=== PATIENT | female | born 1975 | race African-American/Black ===

== ENCOUNTER 2016-11-30 14:55 | Inpatient (IN) | payer OTHER ==
[2016-11-30 16:21] LABS: Anion Gap 16 mmol/L; Blood Urea Nitrogen 12 mg/dL (7-17); Calcium 8.9 mg/dL (8.4-10.2); Carbon Dioxide 24 mmol/L (22-30); Chloride 98.7 mmol/L (98-107); Glucose 107 mg/dL (65-100); Potassium 4.7 mmol/L (3.6-5.0); Sodium 134 mmol/L (137-145)
[2016-11-30 16:32] LABS: Basophils % (Auto) 0.6 % (0.0-1.8); Eosinophils % (Auto) 7.1 % (0.0-4.3); Hemoglobin 11.9 gm/dl (10.1-14.3); Mean Corpuscular HGB Conc 33 % (30-34); Mean Corpuscular Hemoglobin 30 pg (28-32); Mean Corpuscular Volume 91 fl (79-97); Platelet Count 233 K/mm3 (140-440); Red Blood Count 3.97 M/mm3 (3.65-5.03); Red Cell Distribution Width 13.8 % (13.2-15.2); White Blood Count 6.3 K/mm3 (4.5-11.0)
--- NOTE | 2016-11-30 21:20 | Emergency Department Report ---
ED Chest Pain HPI - General Chief Complaint: Chest Pain Stated Complaint: CHEST PAIN Time Seen by Provider: 11/30/16 21:05 Source: patient Mode of arrival: Ambulatory Limitations: No Limitations - History of Present Illness Initial Comments: 41 yo female with a past medical history of hyper-cholesteremia with CAD 2 stents presents to the hospital complains of chest pain today. Patient describes the pain as a pulling sensation in the middle of her chest with associated shortness of breath and lightheadedness. Initial episode lasted approximately 1 hour and then has occurred intermittently throughout the day. No reports of nausea, vomiting diaphoresis or pain with inspiration, calf tenderness, edema, history of PE/DVT. Patient's been compliant with all her medication including but not limited to aspirin, Plavix, and cholesterol medication. Patient was seen and evaluated in the cardiology office and sent to the ER for further evaluation. Previous medical record reviewed. Patient was admitted here July 2016 when she received a RCA and LAD stent with 2 catheterizations. Severity scale (0 -10): 0 - Related Data Home Medications Medication Instructions Recorded Confirmed Last Taken Aspirin [Adult Low Dose Aspirin EC] 81 mg PO DAILY 07/27/16 07/27/16 07/26/16 18 :30 Clopidogrel Bisulfate [Clopidogrel] 75 mg PO DAILY 07/27/16 07/27/16 07/26/16 18 :30 Nitroglycerin [Nitrostat] 0.4 mg SL Q5M PRN 07/27/16 07/27/16 Unknown Previous Rx's Medication Instructions Recorded Last Taken Type Aspirin EC [Aspirin Enteric Coated 81 mg PO QDAY #30 tablet 07/29/16 Unknown Rx TAB] Clopidogrel [Plavix] 75 mg PO QDAY #30 tablet 07/29/16 Unknown Rx Metoprolol [Lopressor TAB] 12.5 mg PO BID #30 tablet 07/29/16 Unknown Rx Allergies Allergy/AdvReac Type Severity Reaction Status Date / Time simvastatin AdvReac STOMACH Verified 07/27/16 08:47 BLOATING TIEN score - Tien Score Age > 65: (0) No Aspirin use within the Past 7 Days: (1) Yes 3 or more CAD Risk Factors: (1) Yes 2 or more Angina events in past 24 hrs: (1) Yes Known CAD with more than 50% Stenosis: (1) Yes Elevated Cardiac Markers: (0) No ST Deviation Greater than 0.5mm: (0) No TIEN Score: 4 ED Review of Systems ROS: Stated complaint: CHEST PAIN Other details as noted in HPI Comment: All other systems reviewed and negative Other: Constitutional: No fevers chills Eyes: No eye pain visual changes ENT: No ear pain or throat pain Neck: Denies pain Respiratory: Denies cough wheezing Cardiovascular: Denies palpitations, syncope GI: Denies abdominal pain, nausea, vomiting, diarrhea : Denies dysuria Musculoskeletal: Denies back pain, joint swelling Skin: Denies rash, lesions, erythema Neurologic: Denies headache, numbness, weakness Psychiatric: Denies suicidal ideation, hallucinations ED Past Medical Hx - Past Medical History Hx Asthma: Yes Hx Tuberculosis: No Additional medical history: 2 heart stents 07/2016 - Social History Smoking Status: Never Smoker Substance Use Type: None - Medications Home Medications: Home Medications Medication Instructions Recorded Confirmed Last Taken Type Aspirin [Adult Low Dose Aspirin EC] 81 mg PO DAILY 07/27/16 07/27/16 07/26/16 18 :30 History Clopidogrel Bisulfate [Clopidogrel] 75 mg PO DAILY 07/27/16 07/27/16 07/26/16 18 :30 History Nitroglycerin [Nitrostat] 0.4 mg SL Q5M PRN 07/27/16 07/27/16 Unknown History Aspirin EC [Aspirin Enteric Coated 81 mg PO QDAY #30 tablet 07/29/16 Unknown Rx TAB] Clopidogrel [Plavix] 75 mg PO QDAY #30 tablet 07/29/16 Unknown Rx Metoprolol [Lopressor TAB] 12.5 mg PO BID #30 tablet 07/29/16 Unknown Rx ED Physical Exam - General Limitations: No Limitations - Other Other exam information: General: No limitations, patient is alert in no acute distress Head exam: Atraumatic, normocephalic Eyes exam: Normal appearance, pupils equal reactive to light, extraocular movements intact ENT: Moist mucous membrane, normal oropharynx Neck exam: Normal inspection, full range of motion, no meningismus nontender Respiratory exam: Clear to auscultation bilateral, no wheezes, rales, crackles Cardiovascular: Normal rate and rhythm, normal heart sounds Abdomen: Soft, nondistended, and nontender, with normal bowel sounds, no rebound, or guarding Extremity: Full range of motion normal inspection no deformity Back: Normal Inspection, full range of motion, no tenderness Neurologic: Alert, oriented x3, cranial nerves intact, no motor or sensory deficit Psychiatric: normal affect, normal mood Skin: Warm, dry, intact ED Course Vital Signs 11/30/16 11/30/16 15:21 21:02 Temperature 98.5 F 98.3 F Pulse Rate 72 64 Respiratory 18 15 Rate Blood Pressure 113/63 Blood Pressure 110/62 [Left] O2 Sat by Pulse 100 98 Oximetry - Reevaluation(s) Reevaluation #1: 11/30/16 21:24 Patient stable in the ED ED Medical Decision Making - Lab Data Result diagrams: 11/30/16 15:53 11/30/16 15:53 Lab Results 11/30/16 11/30/16 11/30/16 Range/Units 15:53 15:53 18:27 WBC 6.3 (4.5-11.0) K/mm3 RBC 3.97 (3.65-5.03) M/mm3 Hgb 11.9 (10.1-14.3) gm/dl Hct 36.0 (30.3-42.9) % MCV 91 (79-97) fl MCH 30 (28-32) pg MCHC 33 (30-34) % RDW 13.8 (13.2-15.2) % Plt Count 233 (140-440) K/mm3 Lymph % (Auto) 27.7 (13.4-35.0) % Lucas % (Auto) 7.2 (0.0-7.3) % Eos % (Auto) 7.1 H (0.0-4.3) % Baso % (Auto) 0.6 (0.0-1.8) % Lymph # 1.8 (1.2-5.4) K/mm3 Lucas # 0.5 (0.0-0.8) K/mm3 Eos # 0.4 (0.0-0.4) K/mm3 Baso # 0.0 (0.0-0.1) K/mm3 Seg Neutrophils % 57.4 (40.0-70.0) % Seg Neutrophils # 3.6 (1.8-7.7) K/mm3 Sodium 134 L (137-145) mmol/L Potassium 4.7 (3.6-5.0) mmol/L Chloride 98.7 (98-107) mmol/L Carbon Dioxide 24 (22-30) mmol/L Anion Gap 16 mmol/L BUN 12 (7-17) mg/dL Creatinine 0.5 L (0.7-1.2) mg/dL Estimated GFR > 60 ml/min BUN/Creatinine Ratio 24.00 % Glucose 107 H (65-100) mg/dL Calcium 8.9 (8.4-10.2) mg/dL Troponin T < 0.010 < 0.010 (0.00-0.029) ng/mL - EKG Data -: EKG Interpreted by Me (nsr rate 75) - EKG Data When compared to previous EKG there are: no significant change (compared to ) - Radiology Data Radiology results: report reviewed - Medical Decision Making Patient admitted to the hospital further cardiac workup or evaluation given history. EKG unchanged with negative cardiac enzymes during ED evaluation. Cardiology has been consulted - Differential Diagnosis unstable angina, mi, atypical chest pain Critical Care Time: No Critical care attestation.: If time is entered above; I have spent that time in minutes in the direct care of this critically ill patient, excluding procedure time. ED Disposition Clinical Impression: CAD (coronary artery disease), Hx of heart artery stent Chest pain Qualifiers: Chest pain type: unspecified Qualified Code(s): R07.9 - Chest pain, unspecified Disposition: OP ADMITTED IP TO THIS HOSP Is pt being admited?: Yes Condition: Stable Time of Disposition: 21:20 (Dr atkinson/hosp)
[2016-11-30] MEDS ORDERED: AMBIEN PO PRN (23:20)
[2016-11-30] MEDS ORDERED: DULCOLAX PR PRN (23:20)
[2016-11-30] MEDS ORDERED: PERCOCET 5/325 PO PRN (23:20)
[2016-11-30] MEDS ORDERED: ZOFRAN IV PRN (23:20)
[2016-11-30] MEDS ORDERED: SODIUM CHLORIDE FLUSH SYRINGE 10 ML IV PRN (23:20)
[2016-11-30] MEDS ORDERED: MORPHINE IV PRN (23:20)
[2016-11-30] MEDS ORDERED: TYLENOL PO PRN (23:20)
[2016-11-30] MEDS ORDERED: MILK OF MAGNESIA PO PRN (23:20)
--- NOTE | 2016-11-30 23:29 | History and Physical Report ---
History of Present Illness Date of examination: 11/30/16 Date of admission: 11/30/16 21:25 Chief complaint: Chest pain History of present illness: Patient 41-year-old with a history of coronary artery disease with stent placed for two-vessel disease. Patient seen by cardiology today for persistent chest pain and was told to go to the emergency room. At present patient describes chest pain as 6-7 out of 10 on the left side associated with shortness of breath and some dizziness. Patient denies any nausea vomiting. Patient states that after a stent was placed roughly 2 years ago she has had only one episode of chest pain. Patient states this time chest pain became more persistent and a little more severe therefore she follow-up with cardiology which was told to go to the ED. At this point in the ED patient is chest pain free at this particular time no shortness of breath no different exertion orthopnea no PND resting comfortably states she's hungry. She admitted for further cardiac workup and evaluation including stress tests echocardiogram. Past History Past Medical History: anemia, CAD, hypertension, hyperlipidemia. denies: acute MA, atrial fib, arrhythmia, arthritis, cancer, COPD, diabetes, dialysis, DVT, ESRD, GERD, heart failure, hepatitis, HIV/AIDS, hyperthyroidism, hypothyroidism , liver disease, migraines, PVD, pulmonary embolism, renal failure, seizures, stroke Past Surgical History: No surgical history Social history: no significant social history, lives with family, full code. denies: smoking, alcohol abuse, prescription drug abuse, IV drug use Family history: CAD Medications and Allergies Allergies Allergy/AdvReac Type Severity Reaction Status Date / Time simvastatin AdvReac STOMACH Verified 07/27/16 08:47 BLOATING Home Medications Medication Instructions Recorded Confirmed Last Taken Type Aspirin [Adult Low Dose Aspirin EC] 81 mg PO DAILY 07/27/16 11/30/16 11/30/16 History Clopidogrel [Plavix] 75 mg PO QDAY #30 tablet 07/29/16 11/30/16 11/30/16 Rx AtorvaSTATin [Lipitor] 40 mg PO DAILY 11/30/16 11/30/16 11/30/16 History Review of Systems Constitutional: no weight loss, no fever, no chills, no anorexia, no weakness, no malaise Ears, nose, mouth and throat: no decreased hearing, no nasal congestion, no epistaxis, no bleeding gums, no mouth pain, no dysphagia, no hoarseness, no post -nasal drip, no vertigo, no neck fullness/pressure Cardiovascular: chest pain, palpitations, lightheadedness, shortness of breath, no orthopnea, no rapid/irregular heart beat, no edema, no syncope, no dyspnea on exertion, no paroxysmal nocturnal dyspnea, no claudication, no phlebitis, no high blood pressure, no leg edema, no decreased exercise tolerance Respiratory: no hemoptysis, no shortness of breath, no congestion, no pleurisy, no sleep apnea, no home oxygen Gastrointestinal: no nausea, no vomiting, no diarrhea, no constipation, no melena, no hematochezia, no loss of appetite, no early satiety, no indigestion, no jaundice, no dyspepsia/bloating, no lactose intolerance Genitourinary Female: no flank pain, no urinary frequency, no incomplete emptying, no urge incontinence, no vaginal itching, no vaginal discharge, no abnormal vaginal bleeding, no genital sores, no mood problems, no hot flashes, no Menstruation: no ammenorrhea on BC, no period spotting, no period light Rectal: no bleeding, no hemorrhoids, no discharge Musculoskeletal: no neck stiffness, no neck pain, no shooting arm pain, no hot joints, no gait dysfunction, no frequent falls, no fractures Integumentary: no pruritis, no redness, no sores, no boils, no bullae, no darkening of skin, no depigmentation, no acne, no dryness, no color changes, no brittle nails, no striae Neurological: no transient paralysis, no paralysis, no weakness, no parathesias , no tingling, no seizures, no headaches, no migraines, no convulsions, no change in speech, no motor disturbance, no loss of vision, no burning pain, no paralysis Psychiatric: no change in libido, no disorientation, no hopelessness, no anhedonia, no difficulties concentrating, no irritability, no sadness/ tearfullness, no mood swings Endocrine: no cold intolerance, no heat intolerance, no polyphagia, no polydipsia, no polyuria, no deepening of the voice, no thyroid mass, no palpatations, no high blood sugars, no low blood sugars Hematologic/Lymphatic: no easy bleeding, no lymphadenopathy, no lymphedema, no thrombophilia, no other Allergic/Immunologic: no wheezing, no persistent infections, no angioedema, no gluten intolerance Exam - Constitutional Vitals: Temp Pulse Resp BP Pulse Ox 98.3 F 64 15 110/62 98 11/30/16 21:02 11/30/16 21:02 11/30/16 21:02 11/30/16 21:02 11/30/16 21:02 General appearance: Present: no acute distress, well-nourished - EENT Eyes: Present: PERRL ENT: hearing intact, clear oral mucosa - Neck Neck: Present: supple, normal ROM - Respiratory Respiratory effort: normal Respiratory: bilateral: CTA - Cardiovascular Heart Sounds: Present: S1 & S2. Absent: rub, click - Extremities Extremities: pulses symmetrical, No edema Peripheral Pulses: within normal limits - Abdominal General gastrointestinal: Present: soft, non-tender, non-distended, normal bowel sounds Female genitourinary: Present: normal - Integumentary Integumentary: Present: clear, warm, dry - Musculoskeletal Musculoskeletal: gait normal, strength equal bilaterally - Psychiatric Psychiatric: appropriate mood/affect, intact judgment & insight - Neurologic Neurologic: CNII-XII intact, moves all extremities Results - Labs CBC & Chem 7: 11/30/16 15:53 11/30/16 15:53 Labs: Laboratory Last Values WBC 6.3 K/mm3 (4.5-11.0) 11/30/16 15:53 RBC 3.97 M/mm3 (3.65-5.03) 11/30/16 15:53 Hgb 11.9 gm/dl (10.1-14.3) 11/30/16 15:53 Hct 36.0 % (30.3-42.9) 11/30/16 15:53 MCV 91 fl (79-97) 11/30/16 15:53 MCH 30 pg (28-32) 11/30/16 15:53 MCHC 33 % (30-34) 11/30/16 15:53 RDW 13.8 % (13.2-15.2) 11/30/16 15:53 Plt Count 233 K/mm3 (140-440) 11/30/16 15:53 Lymph % (Auto) 27.7 % (13.4-35.0) 11/30/16 15:53 Ward % (Auto) 7.2 % (0.0-7.3) 11/30/16 15:53 Eos % (Auto) 7.1 % (0.0-4.3) H 11/30/16 15:53 Baso % (Auto) 0.6 % (0.0-1.8) 11/30/16 15:53 Lymph # 1.8 K/mm3 (1.2-5.4) 11/30/16 15:53 Ward # 0.5 K/mm3 (0.0-0.8) 11/30/16 15:53 Eos # 0.4 K/mm3 (0.0-0.4) 11/30/16 15:53 Baso # 0.0 K/mm3 (0.0-0.1) 11/30/16 15:53 Seg Neutrophils % 57.4 % (40.0-70.0) 11/30/16 15:53 Seg Neutrophils # 3.6 K/mm3 (1.8-7.7) 11/30/16 15:53 Sodium 134 mmol/L (137-145) L 11/30/16 15:53 Potassium 4.7 mmol/L (3.6-5.0) 11/30/16 15:53 Chloride 98.7 mmol/L (98-107) 11/30/16 15:53 Carbon Dioxide 24 mmol/L (22-30) 11/30/16 15:53 Anion Gap 16 mmol/L 11/30/16 15:53 BUN 12 mg/dL (7-17) 11/30/16 15:53 Creatinine 0.5 mg/dL (0.7-1.2) L 11/30/16 15:53 Estimated GFR > 60 ml/min 11/30/16 15:53 BUN/Creatinine Ratio 24.00 % 11/30/16 15:53 Glucose 107 mg/dL (65-100) H 11/30/16 15:53 Calcium 8.9 mg/dL (8.4-10.2) 11/30/16 15:53 Troponin T < 0.010 ng/mL (0.00-0.029) 11/30/16 21:34 - Imaging and Cardiology EKG: image reviewed Assessment and Plan Advance Directives: Yes VTE prophylaxis?: Chemical Plan of care discussed with patient/family: Yes - Patient Problems (1) CAD (coronary artery disease) Current Visit: Yes Status: Acute Qualifiers: Coronary Disease-Associated Artery/Lesion type: C [place] vs. transplanted heart: N Associated angina: A Plan to address problem: Patient currently with persistent chest pain progressively worsening today with a history of stenting seen by cardiology today aware of admission we'll evaluate patient in a.m. We'll obtain stress test echocardiogram initial cardiac isoenzymes negative we'll obtain 1 more set of cardiac isoenzymes. Follow-up a.m. stress test. (2) Chest pain Current Visit: Yes Status: Acute Qualifiers: Chest pain type: unspecified Qualified Code(s): R07.9 - Chest pain, unspecified Plan to address problem: Cyst in chest pain is mention in previous coronary artery disease. We'll place patient back on aspirin Plavix and Lipitor follow-up evaluation of stents with further stress testing possible echo cardiology aware. (3) Hyperlipidemia Current Visit: Yes Status: Acute Qualifiers: Hyperlipidemia type: H Plan to address problem: To use statin and atorvastatin.
--- NOTE | 2016-12-01 00:21 | Admit Criteria Form ---
Admission Criteria Documentation: CHEST PAIN Clinical Indications for Admission to Inpatient Care (Place 'X' for any and all applicable criteria): Admission is indicated for chest pain and ANY ONE of the following(1)(2)(3)(4)(5 ): [ ]I. Angina with acute coronary syndrome (Also use Myocardial Infarction or Angina guideline) [ ]II. Hemodynamic instability [ ]III. Angina needing acute intervention as indicated by ALL of the following( 11)(12): [ ]a) Unstable angina is present as indicated by angina that is ANY ONE of the following: [ ]i) New onset [ ]ii) Nocturnal [ ]iii) Prolonged at rest [ ]iv) Progressive [ ]b) Angina warrants acute intervention as indicated by ANY ONE of the following: [ ]i) Recurrent angina (e.g, not responding as previously to treatment) [ ]ii) Angina at rest or with low-level activities despite initial medical therapy [ ]iii) New or presumably new ST-segment depression on ECG [ ]iv) Signs or symptoms of heart failure (eg, dyspnea, pulmonary edema) [ ]v) New or worsening mitral regurgitation [ ]vi) Hemodynamic instability [ ]vii) Dangerous arrhythmia (eg, sustained ventricular tachycardia) [ ]viii) History of percutaneous coronary intervention within 6 months [ ]ix) History of coronary artery bypass graft surgery [ ]x) TIEN risk score of 2 or greater[A] [ ]xi) History of Diabetes(14) [ ]xii) High-risk cardiac ischemia findings on noninvasive testing (e.g, echocardiogram, treadmill testing, nuclear scan) [ ]xiii) Chronic renal insufficiency (ie, estimated GFR less than 60 mL/min/1.732m) [ ]xiv) Left ventricular ejection fraction less than 40% [ ]IV. Evidence of TN (eg, cardiac biomarkers positive, ST-segment elevation on ECG) also use Myocardial Infarction Criteria Form. [ ]V. Pulmonary edema [ ]. Respiratory distress [ ]VII. Chest pain indicative of serious diagnosis other than coronary artery disease (eg, aortic dissection) [ ]VIII. Contraindications and/or Inappropriate clinical situations for Observational Care in patients with Chest Pain, when ANY ONE of the following is required: [ ]a) Patient with risk factor for pulmonary embolism, acute coronary syndrome and myocardial infarction (18) [ ]b) Patient with Pulmonary embolism require an average LOS of 4.3 days, therefore emergency department observation management is inappropriate 18,23 [ ]c) Painful condition/s in the elderly, have the highest rate of recidivism after emergency department observation management (10.8%) 20,21,22 [ ]d) Elevated cardiac biomarker requires intensive and exhaustive care (19) [X ]IX. General contraindications and/or Inappropriate clinical situations for Observational Care in patients with Chest Pain, when ANY ONE of the following is required: [ X]a) Prediction of prolongation of LOS based on ANY ONE of the following may be considered as a contraindication for observational care 2, 3, 4, 5, 6, 7, 8, 9, 10, 11 [ ]i) Age > 65 yrs. [ ]ii) Patient arriving by ambulance [ ]iii) Patient with high acuity [ ]iv) Patient requiring vital sign monitoring [ X]v) Patient on IV medication [ ]b) Systolic blood pressures 180mmHg 3,12 [ ]c) Patient with altered mental status including delirium and other alteration of consciousness, (3) [ ]d) Patient whose discharge disposition will be to a [facility]p home or rehabilitation home should not be managed in Emergency Department Observation Unit. CMS rule requires 3 days hospital stay before such placement. 3,13 [ ]e) Patient with failure to thrive due to broad array of etiologies 3,16,17 [ ]f) Inability to ambulate 3,14 Extended stay beyond goal length of stay may be needed for (1)(28): [ ]a) Specific condition diagnosed after evaluation (eg, pulmonary embolism, aortic dissection) [ ]b) Unstable angina [ ]c) Continued suspicion of acute coronary syndrome with inability to complete needed cardiac evaluation (eg, patient clinically unable to undergo stress testing) [ ]d) Myocardial infarction (Contents from ANGINA and CHEST PAIN clinical indications for admission to inpatient care have been integrated in this form) The original [employer] content created by [employer] has been revised. The portions of the content which have been revised are identified through the use of italic text or in bold, and [email or web address] has neither reviewed nor approved the modified material. All other unmodified content is copyright [facility] [employer] [facility]. Please see references footnoted in the original [employer] [facility] edition 2016 Admission Criteria Met: Yes
[2016-12-01 01:22] LABS: Creatine Kinase 57 units/L (30-135)
[2016-12-01 01:28] LABS: Creatine Kinase MB < 1.0 ng/mL (0.0-4.0)
[2016-12-01] MEDS: DUONEB 0.5 MG-3 MG/3 ML SOLN IH SCH ×3 (02:25→15:39)
[2016-12-01 06:45] LABS: Creatine Kinase 49 units/L (30-135)
[2016-12-01 06:55] LABS: Creatine Kinase MB < 1.0 ng/mL (0.0-4.0)
[2016-12-01] MEDS ORDERED: ECOTRIN PO SCH (10:00)
[2016-12-01] MEDS ORDERED: LOVENOX SUB-Q SCH (10:00)
[2016-12-01] MEDS ORDERED: PLAVIX PO SCH (10:00)
[2016-12-01] MEDS ORDERED: PEPCID IV SCH (10:00)
--- NOTE | 2016-12-01 11:18 | Event Note ---
Date: 12/01/16 Atypical chest pain Excellent exercise tolerance on Donell Protocol No ischemia by MPI Normal LVEF by echo Normal 12 lead ECG Recommendations: Increase lipitor to 80 mg po qhs May go home and follow-up as outpatient Will sign off
--- NOTE | 2016-12-01 11:48 | Discharge Summary ---
Providers - Providers Date of Admission: 11/30/16 21:25 Date of discharge: 12/01/16 Attending physician: DEVIN MUNGUIA 11/30/16 Consult to Cardiac Rehabilitation [CONS] Routine Reason For Exam: Phase I Primary care physician: LYN OLVERA Hospitalization Reason for admission: cp Condition: Stable Hospital course: Patient 41-year-old with a history of coronary artery disease with stent placed for two-vessel disease. Patient seen by cardiology the day prior to admission for persistent chest pain and was told to go to the emergency room. In the ER, patient described chest pain as 6-7 out of 10 on the left side associated with shortness of breath and some dizziness. Patient denied any nausea vomiting. Patient states that after a stent was placed roughly 2 years ago she has had only one episode of chest pain. Patient states this time chest pain became more persistent and a little more severe therefore she follow-up with cardiology which was told to go to the ED. patient was seen by cardiology in consultation and underwent excellent exercise tolerance on Donell protocol with no ischemia by MPI. Patient also had echocardiogram that was felt to be normal LVEF and also a normal 12-lead EKG. Cardiology recommended increase Lipitor 80 mg by mouth daily at bedtime, discharge home and follow-up as an outpatient. Dedicated discharge time 35 minutes. Disposition: DISCHARGED TO HOME OR SELFCARE - Discharge Diagnoses (1) CAD (coronary artery disease) Status: Acute Qualifiers: Coronary Disease-Associated Artery/Lesion type: C [place] vs. transplanted heart: N Associated angina: A (2) Chest pain Status: Acute Qualifiers: Chest pain type: unspecified Qualified Code(s): R07.9 - Chest pain, unspecified (3) Hx of heart artery stent Status: Acute (4) Hyperlipidemia Status: Acute Qualifiers: Hyperlipidemia type: H Core Measure Documentation - Palliative Care Palliative Care/ Comfort Measures: Not Applicable - Core Measures Any of the following diagnoses?: none Exam - Constitutional Vitals: Temp Pulse Resp BP Pulse Ox 97.9 F 65 20 86/52 99 12/01/16 05:54 12/01/16 05:54 12/01/16 05:54 12/01/16 05:54 12/01/16 11:23 General appearance: Present: no acute distress, well-nourished - EENT Eyes: Present: PERRL ENT: hearing intact, clear oral mucosa - Neck Neck: Present: supple, normal ROM - Respiratory Respiratory effort: normal Respiratory: bilateral: CTA - Cardiovascular Heart Sounds: Present: S1 & S2. Absent: rub, click - Extremities Extremities: pulses symmetrical, No edema Peripheral Pulses: within normal limits - Abdominal General gastrointestinal: Present: soft, non-tender, non-distended, normal bowel sounds Female genitourinary: Present: normal - Integumentary Integumentary: Present: clear, warm, dry - Musculoskeletal Musculoskeletal: gait normal, strength equal bilaterally - Psychiatric Psychiatric: appropriate mood/affect, intact judgment & insight - Neurologic Neurologic: CNII-XII intact, moves all extremities Plan Activity: no restrictions Weight Bearing Status: Full Weight Bearing Diet: low fat, low cholesterol, low salt Follow up with: LYN OLVERA MD [Primary Care Provider] - 3-5 Days JASMIN HIRSCH MD [Staff Physician] - 7 Days Prescriptions: Aspirin [Adult Low Dose Aspirin EC] 81 mg PO DAILY #30 tablet. AtorvaSTATin [Lipitor] 80 mg PO DAILY #30 tablet Clopidogrel [Plavix] 75 mg PO QDAY #30 tablet
[2016-12-01] MEDS ORDERED: PNEUMOVAX 23 IM ONE (12:00)
[2016-12-01] MEDS ORDERED: FLUARIX QUAD 2016-2017(36 MOS+) IM ONE (12:00)
[2016-12-01 13:41] VITALS: BP 102/59
--- NOTE | 2016-12-01 22:15 | Treadmill Report ---
INDICATION FOR PROCEDURE: Chest pain. ORDERING PHYSICIAN: Lazaro Hatfield MD FINDINGS: There is no scintigraphic evidence of myocardial ischemia. The left ventricle is normal in size and systolic function. The left ventricular ejection fraction is measured at 79%. Normal wall motion and wall thickening is noted on gated imaging. CONCLUSION: Normal perfusion scan. JOB# [id number] FREDO/KARRI
--- NOTE | 2016-12-05 08:13 | Query- Chest Pain ---
Umberto Epstein____Liu Date:___12/05/16 Yari/CDS:____Getachew / Kay Phone#:___[phone] Exercise your independent professional judgment when responding to query. Questions asked do not imply a particular answer is desired or expected. We greatly appreciate your clarification on this issue. Clinical Documentation States: 41 year old female was admitted on 11/30/26. The H&P states " Patient with a history of coronary artery disease, with stent placed for two-vessel disease, was seen by cardiology today for persistent chest pain. " The discharge summary states "chest pain : acute " Clinical Findings Show: Exercise stress test : The left ventricle is normal in size and systolic function. Ejection fraction is measured at 79% conclusion : normal perfusion scan Please document the etiology of Chest Pain: [ ] Myocardial Infarction [ ] Pneumonia [ ] Mediastinitis [ ] Costochondritis [ ] Pulmonary Embolism [ ] Coronary Artery Disease [ x] GERD [ ] Other: [ ] Comment/Explanation: Present on Admission: [ x] Yes (Y) [ ] Clinically undeterminable (W) [ ] No(N) Please document response in your Progress Notes and/or Discharge Summary and indicate if the condition was present on admission. RIVKA
== END 2016-12-01 14:15 | disposition home or self-care (01) | DRG 392 ==
LOC: ED 14:55 → 4A 21:25
PROVIDERS: ADMIT Internal Medicine; ATTEND Hospitalist
DX: K21.9 Gastro-esophageal reflux disease without esophagitis (principal); I25.10 Atherosclerotic heart disease of native coronary artery without angina pectoris; J45.909 Unspecified asthma, uncomplicated; E78.5 Hyperlipidemia, unspecified; Z82.49 Family history of ischemic heart disease and other diseases of the circulatory system; Z88.8 Allergy status to other drugs, medicaments and biological substances; Z95.5 Presence of coronary angioplasty implant and graft
CPT/HCPCS: 36415; 78452; 80048; 80061; 82550; 82553; 84484; 85025; 90686; 90732; 93005; 93010; 93017; 93306; 99285; A9270-GY; A9502